=== PATIENT | male | born 1995 | race Two or more races ===

== ENCOUNTER 2020-11-16 00:04 | Emergency (ER) | payer MEDICAID ==
[~2020-11-16] VITALS: Ht 167.6 cm; Wt 83.9 kg
--- NOTE | 2020-11-16 00:47 | NUR ---
ED Nurse Note: Patient walked into the ED with c/o abrasion around the penis after partner gave him oral sex onset 2 hours ago. Pt denies dysuria. No active bleeding noted. Pt is AAOX4 and ambulatory. ERMD at bedside for assessment
[2020-11-16 00:48] VITALS: BP 134/85
[2020-11-16] MEDS ORDERED: Tetanus/Diptheria/Pertussis IM ONE ×2 (00:59→01:00)
[2020-11-16] MEDS ORDERED: Surgicel 4in x 8in TOPIC ONE (01:00)
--- NOTE | 2020-11-16 01:02 | Emergency Room Report ---
History of Present Illness General Chief Complaint: Male Urogenital Problems Source: Patient Present Illness HPI Patient is a 25-year-old male presents for penile bleeding. Reports having recent intercourse and had onset of bleeding subsequently. Denies any recent tetanus vaccine. Onset of symptoms approximate 2 hours prior to arrival. Denies a significant blood loss. No prior bleeding episodes. Allergies: Coded Allergies: No Known Allergies (Unverified , 11/16/20) COVID-19 Screening Contact w/high risk pt: No Experienced COVID-19 symptoms?: No COVID-19 Testing performed R D MANAGER: No Patient History Past Medical History: see triage record Reviewed Nursing Documentation: PMH: Agreed; PSxH: Agreed Nursing Documentation-PMH Past Medical History: No Stated History Review of Systems All Other Systems: negative except mentioned in HPI Physical Exam Vital Signs Date Time Temp Pulse Resp B/P (MAP) Pulse Ox O2 Delivery O2 Flow Rate FiO2 11/16/20 00:39 98.4 85 20 134/85 (101) 98 Room Air Sp02 EP Interpretation: reviewed, normal General Appearance: normal inspection, well appearing, no apparent distress, alert, GCS 15, non-toxic Head: atraumatic ENT: normal ENT inspection, hearing grossly normal, normal voice Neck: normal inspection, full range of motion, supple, no bony tend Respiratory: normal inspection, lungs clear, normal breath sounds, no respiratory distress, no retraction, no wheezing Cardiovascular #1: regular rate, rhythm, no edema Gastrointestinal: normal inspection, normal bowel sounds, non tender, soft, no guarding, no hernia Genitourinary: no CVA tenderness, other - Uncircumcised male with the bleeding to the ventral aspect of the penis just distal to the frenulum with small laceration less than 0.5 cm Musculoskeletal: normal inspection, back normal, normal range of motion Neurologic: alert, responsive, speech normal, normal inspection Psychiatric: normal inspection, judgement/insight normal, mood/affect normal Medical Decision Making Diagnostic Impression: Primary Impression: Laceration of penis ER Course Presents for penile bleeding. Differential diagnosis include was not limited to penile laceration, bite wound, among others. Patient had recent intercourse and had possible bite injury. Patient will be put on oral antibiotics. He was given Surgicel to the location of bleeding. Does not appear to require suture at this time.Patient was given prescription for Augmentin for bite prophylaxis. Tetanus vaccine was updated. Bleeding was controlled at the time of discharge. Patient advised to return if he had recurrence of bleeding any other concerns. Is advised to have wound checked in 2 to 3 days with his physician. This medical record is generated with [employer] tub tender software. There may be some tub tender discrepancies related to use of this software Last Vital Signs Date Time Temp Pulse Resp B/P (MAP) Pulse Ox O2 Delivery O2 Flow Rate FiO2 11/16/20 00:48 98.4 20 134/85 98 Room Air 11/16/20 00:39 85 Status: improved Disposition: HOME, SELF-CARE Condition: Stable Chris Parson MD Nov 16, 2020 01:02
[2020-11-16] MEDS ORDERED: BACITRACIN ZIN1 EACH TOPIC (01:03)
[2020-11-16] MEDS ORDERED: AUGMENTIN 875-1 EAC1 ORAL (01:03)
--- NOTE | 2020-11-16 01:15 | NUR ---
ED Nurse Note: Surgicel applied to genital area. Bleeding controlled
[2020-11-16 01:31] VITALS: BP 134/85
--- NOTE | 2020-11-16 01:31 | NUR ---
ER DISCHARGE NOTE: Patient is cleared to be discharged per ERMD, pt is aox4, on room air, with stable vital signs. pt was given dc and prescription instructions, pt was able to verbalize understanding, pt id band removed. pt is able to ambulate with steady gait. pt took all belongings.
== END 2020-11-16 01:32 | disposition home or self-care (01) ==
LOC: EMR 01:00
DX: S31.21XA Laceration without foreign body of penis, initial encounter (principal); X58.XXXA Exposure to other specified factors, initial encounter; Y92.9 Unspecified place or not applicable; Z23 Encounter for immunization
CPT/HCPCS: 90471; 90715; Z7502; 99282